=== PATIENT | male | born 1950 | race Caucasian/White ===

== ENCOUNTER → 2018-08-01 | Outpatient (CLI) | payer MEDICARE, OTHER ==
[~2018-08-01] MED LIST: ASPIRIN 81M81 MG/TA2 PO; PREDNISONE10 MG PO; PRINIVIL40 MG PO
== END ==
LOC: COL.RAD 12:35
DX: Z13.6 Encounter for screening for cardiovascular disorders (principal); N18.3 Chronic kidney disease, stage 3 (moderate); N28.1 Cyst of kidney, acquired; R16.1 Splenomegaly, not elsewhere classified